=== PATIENT | female | born 1935 | race Caucasian/White ===

== ENCOUNTER 2018-05-03 00:44 | Inpatient (IN) | payer OTHER ==
[~2018-05-03] VITALS: Ht 165.1 cm; Wt 65.8 kg
[2018-05-03] MEDS ORDERED: COZAAR50 MG (00:51)
[2018-05-03] MEDS ORDERED: ASPIR 8181 MG (00:52)
[2018-05-03] MEDS ORDERED: GLUCOTROL10 MG (00:53)
[2018-05-06] MEDS ORDERED: PLAVIX75 MG PO (08:44)
== END 2018-05-06 13:54 | disposition home or self-care (01) | DRG 66 ==
LOC: ER 00:44 → SEC-K 10:24 → MEDI 10:24
PROC: 4A12X4Z Monitoring of Cardiac Electrical Activity, External Approach (ICD-10-PCS; principal; 2018-05-03)
PROC: B246ZZZ Ultrasonography of Right and Left Heart (ICD-10-PCS; 2018-05-03)
PROC: B345ZZZ Ultrasonography of Bilateral Common Carotid Arteries (ICD-10-PCS; 2018-05-03)
PROC: BW28ZZZ Computerized Tomography (CT Scan) of Head (ICD-10-PCS; 2018-05-03)
PROC: B030ZZZ Magnetic Resonance Imaging (MRI) of Brain (ICD-10-PCS; 2018-05-03)
PROC: B348ZZZ Ultrasonography of Bilateral Internal Carotid Arteries (ICD-10-PCS; 2018-05-03)
DX: I63.511 Cerebral infarction due to unspecified occlusion or stenosis of right middle cerebral artery (principal); R47.81 Slurred speech; I10 Essential (primary) hypertension; E11.9 Type 2 diabetes mellitus without complications; I48.0 Paroxysmal atrial fibrillation
CPT/HCPCS: 70544

== ENCOUNTER 2018-09-29 09:32 | Outpatient (CLI) | payer OTHER ==
[~2018-09-29 09:32] MED LIST: ASPIR 8181 MG; COZAAR50 MG; GLUCOTROL10 MG; PLAVIX75 MG PO
== END 2018-09-29 17:00 | disposition home or self-care (01) ==
LOC: TOM 09:32
DX: Z13.820 Encounter for screening for osteoporosis (principal); K64.1 Second degree hemorrhoids; K62.89 Other specified diseases of anus and rectum; K59.09 Other constipation; K64.4 Residual hemorrhoidal skin tags

== ENCOUNTER 2019-07-18 20:07 | Inpatient (IN) | payer OTHER ==
[~2019-07-18] VITALS: Ht 165.1 cm; Wt 66.7 kg
--- NOTE | 2019-07-18 20:26 | NUR ---
PACIENTE ALERTA,ACTIVA Y ORIENTADA.REFIERE FIEBRE DESDE WILBERT EN LA NOCHE Y ARDOR AL ORINAR HACEN VARIOS ARAYA.
[2019-07-18] MEDS ORDERED: METFORMIN HCL500 MG (20:28)
[2019-07-18] MEDS ORDERED: AVAPRO300 MG (20:29)
[2019-07-18] MEDS ORDERED: ZOCOR20 MG (20:30)
[2019-07-18] MEDS ORDERED: SARELTO (20:30)
[2019-07-18] MEDS ORDERED: ZETIA10 MG (20:31)
--- NOTE | 2019-07-18 22:29 | NUR ---
PACIENTE ALERTA Y ORIENTADA EVALUADA POR LA . RENTA SE ORIENTA A PACIENTE SOBRE TRATAMIENTO MEDICO SE EXTRAEN MUESTARS DE ORACIO Y SE ADMSINITRAN MEDICAMENTOS KRISTAN ORDEN MEDICA BAJO MEDIDAS ASEPTICAS. ORIENTA A PACIENTE SOBRE CULTIVO DE MARIAN.
--- NOTE | 2019-07-19 00:36 | NUR ---
SE RECIBE PTE ALERTA Y ORIENTADA EN LAS 3 ESFERAS EN CAM CON BARANDAS ELEVADAS POR SEGURIDAD. BUEN PATRON RESPIRATORIO. H/L EN BRAZO SIGIFREDO EL CUAL SE ENCUENTRA NANCY DE EDEMA Y ERITEMA. .RENTA RE-EVALUA PTE Y ORDENA CT. REALIZA ESTUDIO. PENDIENTE RE-EVALUACION MEDICA. SE ADMNISTRA IV'S 0.9NSS BAJANDO A 100ML/HR. SE MANTIENE EN OBSERVACION.
--- NOTE | 2019-07-19 07:00 | NUR ---
PACIENTE ALERTA Y ORIENTADA EN OZZIE LADI ESFERAS, PRESENTA BUEN PATRON RESPIRATORIO Y NANCY DE DOLOR. CANALIZADA EN BRAZO LT PATENTE Y NANCY DE S/S DE FLEBITIS E INFILTRACION, RECIBIENDO 0.9% NSS A 100 ML/HR. PENDIENTE EVALUACION DE MEDICINA INTERNA CON DR NIMCO CARLSON POR COMPLICATED UTI.
== END 2019-07-31 16:32 | disposition home or self-care (01) | DRG 445 ==
LOC: ER 20:07 → SEC-K 07-19 10:11 → SURH 07-20 16:09
PROVIDERS: ADMIT Internal Medicine
PROC: BW21ZZZ Computerized Tomography (CT Scan) of Abdomen and Pelvis (ICD-10-PCS; principal; 2019-07-19)
PROC: BW40ZZZ Ultrasonography of Abdomen (ICD-10-PCS; 2019-07-19)
PROC: BW4GZZZ Ultrasonography of Pelvic Region (ICD-10-PCS; 2019-07-19)
PROC: 8E0ZXY6 Isolation (ICD-10-PCS; 2019-07-19)
PROC: BB24ZZZ Computerized Tomography (CT Scan) of Bilateral Lungs (ICD-10-PCS; 2019-07-24)
DX: K80.80 Other cholelithiasis without obstruction (principal); N39.0 Urinary tract infection, site not specified; Q61.02 Congenital multiple renal cysts; J84.9 Interstitial pulmonary disease, unspecified; J84.10 Pulmonary fibrosis, unspecified; R31.0 Gross hematuria; E11.65 Type 2 diabetes mellitus with hyperglycemia; K57.30 Diverticulosis of large intestine without perforation or abscess without bleeding; Z79.4 Long term (current) use of insulin

== ENCOUNTER → 2020-04-02 10:35 | Outpatient (CLI) | payer OTHER ==
[~2020-04-02 10:35] MED LIST changes: +AVAPRO300 MG; +METFORMIN HCL500 MG; +SARELTO; +ZETIA10 MG; +ZOCOR20 MG
== END | disposition home or self-care (01) ==
LOC: LAB 10:35
PROVIDERS: ATTEND Internal Medicine Hematology & Oncology
DX: D69.3 Immune thrombocytopenic purpura (principal)